=== PATIENT | male | born 2000 | race Caucasian/White ===

== ENCOUNTER 2021-04-09 19:50 | Emergency (ER) | payer BC ==
[~2021-04-09] VITALS: Ht 195.6 cm; Wt 131.5 kg
[2021-04-09 20:43] VITALS: BP 148/76
== END 2021-04-09 20:44 | disposition home or self-care (01) ==
LOC: M.ERS 19:50
DX: B08.4 Enteroviral vesicular stomatitis with exanthem (principal); Z90.89 Acquired absence of other organs